=== PATIENT | female | born 1955 | race African-American/Black ===

== ENCOUNTER 2021-07-20 07:35 | Emergency (ER) | payer OTHER ==
[~2021-07-20] VITALS: Ht 165.1 cm; Wt 131.5 kg
[~2021-07-20 07:35] MED LIST: CYCLOBENZAPRINE10 MG; FLEXERIL PO; HYDROCODON-ACE1 EAC7; LASIX 40 MG TAB40 M1 PO; LISINOPRIL40 MG PO; PERCOCET 5-3251 EACH PO
[2021-07-20 08:43] LABS: ABSOLUTE NEUTROPHILS 6.1 thou/uL (1.4-8.2); BASOPHILS 0.4 % (0.0-2.0); EOSINOPHILS 0.6 % (0.0-3.0); HEMATOCRIT 39.7 % (37.0-47.0); HEMOGLOBIN 12.8 gm/dL (12.0-15.0); LYMPHOCYTES 13.1 % (24.0-44.0); MCH 27.1 pg (26.0-34.0); MCHC 32.3 g/dL (28.0-37.0); MCV 83.9 fL (80.0-100.0); PLATELET COUNT 368 thou/uL (150-400); POLYS 81.9 % (36.0-66.0); RBC 4.73 mil/uL (4.20-5.00); RDW 16.4 % (10.5-14.5); WBC 7.4 thou/uL (4.0-11.0)
[2021-07-20 10:43] LABS: CALCIUM 9.6 mg/dL (8.5-10.1); CREATININE 0.6 mg/dL (0.6-1.0); POTASSIUM 4.3 mmol/L (3.5-5.1)
[2021-07-20 10:48] LABS: ALBUMIN 3.5 g/dL (3.4-5.0); TOTAL BILIRUBIN 0.3 mg/dL (0.2-1.0); TOTAL PROTEIN 7.6 g/dL (6.4-8.2)
[2021-07-20] MEDS ORDERED: IBUPROFEN 800800 MG PO (12:00)
[2021-07-20] MEDS ORDERED: BACTRIM DS TAB1 EAC1 PO (12:00)
[2021-07-20 12:01] VITALS: BP 114/72
== END 2021-07-20 12:11 | disposition home or self-care (01) ==
LOC: ER 07:35
PROVIDERS: Emergency Medicine
DX: L03.114 Cellulitis of left upper limb (principal); M67.432 Ganglion, left wrist; I10 Essential (primary) hypertension; Z79.899 Other long term (current) drug therapy